=== PATIENT | female | born 1990 | race African-American/Black ===

== ENCOUNTER 2018-04-26 10:29 | Emergency (ER) | payer MEDICAID ==
[~2018-04-26] VITALS: Ht 160 cm; Wt 55.2 kg
[~2018-04-26 10:29] MED LIST: DIFL150T PO; FLAG500T PO; PRENCAP6 PO; ZOFR4TAB3 SL
[2018-04-26 10:30] VITALS: BP 130/75; PULSE 70; RESP 16; TEMP 98; O2SAT 98
[2018-04-26] MEDS ORDERED: SODIUM CHLOR 0.9% 1000 ML INJ 1,000 ML IV ONE (10:59)
--- NOTE | 2018-04-26 11:02 | PD ---
HPI Chief Complaint: Drawer In Problem/Complaint Time Seen by Provider: 10:53 Travel History International Travel<30 days: No Contact w/Intl Traveler<30days: No Traveled to known affect area: No History of Present Illness HPI Patient comes in complaining of irregular vaginal bleeding. Essentially she has had 3 different menstrual cycles in 1 month. Patient states that previously she was regular menses. Now she started having what she thought was regular menses on April 12 which stopped abruptly, next she had another round on April 19 which also stopped abruptly, and then her last one started April 21 and she is currently still having vaginal bleeding. This is not very usual for her , patient states that she is not on any control pills. Patient states that she is normally sexually active and without protection with her . Patient prior to this did not have any cramping or vaginal discharge, only the vaginal bleeding is what is abnormal. States allergy to penicillin Past medical history significant for 2 with 1 ab PFSH Past Medical History Medical History: Denies Significant Hx Hx Anticoagulant Therapy: No Cardiovascular Problems: No Chemotherapy: No Cerebrovascular Accident: No Diabetes: No Diminished Hearing: No Respiratory: No Immunizations Current: No ?: Unknown LMP: 04/21/18 : 3 Para: 2 Miscarriage: 1 Past Surgical History Surgical History: No Previous Surgery Abdominal Surgery: Yes () Section: Yes Hysterectomy: No Social History Alcohol Use: No Tobacco Use: Yes Substance Use: Yes (MARIJUANA DAILY) Allergies-Medications (Allergen,Severity, Reaction): Coded Allergies: Penicillins (Verified Allergy, Severe, hives and rash, 04/26/18) Uncoded Allergies: PINK SOAP (Allergy, Mild, RASH, 05/04/13) Reported Meds & Prescriptions Reported Meds & Active Scripts Active No Active Prescriptions or Reported Medications Review of Systems General / Constitutional: No: Fever Eyes: No: Visual changes HENT: No: Headaches Cardiovascular: No: Chest Pain or Discomfort Respiratory: No: Shortness of Breath Gastrointestinal: No: Abdominal Pain Genitourinary: Positive: Vaginal Bleeding Musculoskeletal: No: Pain Skin: No Rash Neurologic: No: Weakness Psychiatric: No: Depression Endocrine: No: Polydipsia Hematologic/Lymphatic: No: Easy Bruising Physical Exam Narrative GENERAL: SKIN: Warm and dry. HEAD: Atraumatic. Normocephalic. EYES: Pupils equal and round. No scleral icterus. No injection or drainage. ENT: No nasal bleeding or discharge. Mucous membranes pink and moist. NECK: Trachea midline. No JVD. CARDIOVASCULAR: Regular rate and rhythm. RESPIRATORY: No accessory muscle use. Clear to auscultation. Breath sounds equal bilaterally. GASTROINTESTINAL: Abdomen soft, non-tender, nondistended. MUSCULOSKELETAL: Extremities without clubbing, cyanosis, or edema. No obvious deformities. NEUROLOGICAL: Awake and alert. No obvious cranial nerve deficits. Motor grossly within normal limits. Five out of 5 muscle strength in the arms and legs. Normal speech. PSYCHIATRIC: Appropriate mood and affect; insight and judgment normal. Data Data Last Documented VS Vital Signs Date Time Temp Pulse Resp B/P (MAP) Pulse Ox O2 Delivery O2 Flow Rate FiO2 04/26/18 10:30 98.0 70 16 130/75 (93) 98 Orders Orders Beta Hcg (Quant/Titer) (04/26/18 10:59) Complete Blood Count With Diff (04/26/18 10:59) Comprehensive Metabolic Panel (04/26/18 10:59) Type And Screen (04/26/18 10:59) Urinalysis - C+S If Indicated (04/26/18 10:59) Iv Access Insert/Monitor (04/26/18 10:59) Ecg Monitoring (04/26/18 10:59) Sodium Chlor 0.9% 1000 Ml Inj (Ns 1000 M (04/26/18 10:59) Labs Laboratory Tests Test 04/26/18 11:15 White Blood Count 3.6 TH/MM3 Red Blood Count 4.07 MIL/MM3 Hemoglobin 12.7 GM/DL Hematocrit 37.9 % Mean Corpuscular Volume 93.1 FL Mean Corpuscular Hemoglobin 31.1 PG Mean Corpuscular Hemoglobin Concent 33.4 % Red Cell Distribution Width 13.8 % Platelet Count 241 TH/MM3 Mean Platelet Volume 7.9 FL Neutrophils (%) (Auto) 41.7 % Lymphocytes (%) (Auto) 43.7 % Monocytes (%) (Auto) 8.3 % Eosinophils (%) (Auto) 2.7 % Basophils (%) (Auto) 3.6 % Neutrophils # (Auto) 1.5 TH/MM3 Lymphocytes # (Auto) 1.6 TH/MM3 Monocytes # (Auto) 0.3 TH/MM3 Eosinophils # (Auto) 0.1 TH/MM3 Basophils # (Auto) 0.1 TH/MM3 CBC Comment DIFF FINAL Differential Comment Urine Collection Type CLEAN CATCH Urine Color YELLOW Urine Turbidity CLEAR Urine pH 6.0 Urine Specific [place] 1.025 Urine Protein NEG mg/dL Urine Glucose (UA) NEG mg/dL Urine Ketones NEG mg/dL Urine Occult Blood MOD Urine Nitrite NEG Urine Bilirubin NEG Urine Urobilinogen 0.2 MG/DL Urine Leukocyte Esterase NEG Urine RBC 4-9 /hpf Urine WBC 0-2 /hpf Urine Squamous Epithelial Cells 0-5 /hpf Microscopic Urinalysis Comment CULT NOT INDICATED Blood Urea Nitrogen 11 MG/DL Creatinine 0.70 MG/DL Random Glucose 88 MG/DL Total Protein 7.4 GM/DL Albumin 3.7 GM/DL Calcium Level 8.4 MG/DL Alkaline Phosphatase 31 U/L Aspartate Amino Transf (AST/SGOT) 15 U/L Alanine Aminotransferase (ALT/SGPT) 19 U/L Total Bilirubin 0.7 MG/DL Sodium Level 139 MEQ/L Potassium Level 4.0 MEQ/L Chloride Level 108 MEQ/L Carbon Dioxide Level 26.5 MEQ/L Anion Gap 5 MEQ/L Estimat Glomerular Filtration Rate 121 ML/MIN Human Chorionic Gonadotropin, Quant LESS THAN 1 MIU/ML MDM Medical Decision Making Medical Screen Exam Complete: Yes Emergency Medical Condition: Yes Medical Record Reviewed: Yes Differential Diagnosis Ectopic versus threatened AB versus dysfunctional uterine bleeding Narrative Course test negative CBC shows no leukocytosis, no anemia, normal platelet count and without any left shift UA does not show any evidence of a UTI Electrolytes are all within normal limits, normal kidney liver functions Diagnosis Primary Impression: Dysfunctional uterine bleeding Patient Instructions: Dysfunctional Uterine Bleeding (ED), General Instructions Scripts Norethindrone-Ethinyl Estradiol (Loestrin 20) 1-20 Mg-Mcg Tab 1 TAB PO DAILY, #1 PACK 0 Refills Prov: Jose L Sparks MD 04/26/18 Disposition: 01 DISCHARGE HOME Condition: Stable Jose L Sparks MD Apr 26, 2018 11:02
[2018-04-26 11:32] LABS: BILIRUBIN, URINE NEG (NEG); BLOOD, URINE MOD (NEG); GLUCOSE,URINE NEG (NEG); KETONE, URINE NEG (NEG); NITRITE,URINE NEG (NEG); URINE COLOR YELLOW (YELLW/STRAW); URINE LEUKOCYTE ESTERASE NEG (NEG)
[2018-04-26 11:35] LABS: AUTOMATED NEUTROPHIL # 1.5 TH/MM3 (1.8-7.7); BASOPHIL # 0.1 TH/MM3 (0-0.2); BASOPHIL % 3.6 % (0.0-2.0); EOSINOPHIL # 0.1 TH/MM3 (0-0.4); EOSINOPHIL % 2.7 % (0.0-4.0); HEMATOCRIT 37.9 % (35.0-46.0); HEMOGLOBIN 12.7 GM/DL (11.6-15.3); LYMPH % 43.7 % (9.0-44.0); LYMPHOCYTE # 1.6 TH/MM3 (1.0-4.8); MEAN CELL VOLUME 93.1 FL (80.0-100.0); MEAN CORPUSCULAR HEMOGLOBIN 31.1 PG (27.0-34.0); MEAN CORPUSCULAR HGB CONC 33.4 % (32.0-36.0); MEAN PLATELET VOLUME 7.9 FL (7.0-11.0); MONO % 8.3 % (0.0-8.0); MONOCYTE # 0.3 TH/MM3 (0-0.9); NEUT % 41.7 % (16.0-70.0); PLATELET COUNT 241 TH/MM3 (150-450); RED BLOOD COUNT 4.07 MIL/MM3 (4.00-5.30); RED CELL DISTRIBUTION WIDTH 13.8 % (11.6-17.2); WHITE BLOOD COUNT 3.6 TH/MM3 (4.0-11.0)
[2018-04-26 11:37] LABS: SQUAMOUS EPITHELIAL CELL URINE 0-5 /hpf (0-5); WBC, URINE 0-2 /hpf (0-5)
[2018-04-26 11:46] LABS: CHLORIDE 108 MEQ/L (98-107); SODIUM (NA) 139 MEQ/L (136-145)
[2018-04-26 11:49] LABS: ALBUMIN 3.7 GM/DL (3.4-5.0); BICARBONATE 26.5 MEQ/L (21.0-32.0); BLOOD UREA NITROGEN 11 MG/DL (7-18); CALCIUM 8.4 MG/DL (8.5-10.1); GLUCOSE,RANDOM 88 MG/DL (74-106)
[2018-04-26 11:52] LABS: ALT (GPT) 19 U/L (10-53); AST (GOT) 15 U/L (15-37); GLOMERULAR FILTRATION RATE 121 ML/MIN (>89)
[2018-04-26 11:54] LABS: TOTAL BILIRUBIN ADULT 0.7 MG/DL (0.2-1.0); TOTAL PROTEIN 7.4 GM/DL (6.4-8.2)
[2018-04-26 11:55] LABS: ALKALINE PHOSPHATASE 31 U/L (45-117)
[2018-04-26] MEDS ORDERED: NORE1TAB60 PO (12:47)
[2018-04-26 13:08] VITALS: BP 124/78
== END 2018-04-26 13:11 | disposition home or self-care (01) ==
LOC: PHED 10:29
DX: N93.8 Other specified abnormal uterine and vaginal bleeding (principal); F12.90 Cannabis use, unspecified, uncomplicated; Z72.0 Tobacco use
CPT/HCPCS: 80053; 81001; 84702; 85025; 86850; 86900; 86901; 96360; 99284; J7030